=== PATIENT | male | born 1975 | race Two or more races ===

== ENCOUNTER 2021-03-28 13:02 | Emergency (ER) | payer MEDICAID ==
[~2021-03-28] VITALS: Ht 185.4 cm; Wt 86.2 kg
[~2021-03-28 13:02] MED LIST: ALBUAER3 IN; ASPI81CH43 PO; CAR3125T PO; FURO1TAB31 PO; LEVO500T31 PO; LISI2.5T47 PO
[2021-03-28] MEDS ORDERED: IOHEXOL 350 MG/ML 100ML IJ ONE ×2 (14:11→15:32)
[2021-03-28 14:39] LABS: Basophils # (auto) 0.1 10 ^3/uL (0-0.2); Basophils % (auto) 0.7 % (0.0-2.0); Eosinophils # (auto) 0 10 ^3/uL (0-0.8); Eosinophils % (auto) 0.3 % (0.0-7.0); Hematocrit 46.6 % (41.0-53.0); Hemoglobin 15.3 g/dL (13.5-17.5); Lymphocytes # (auto) 1.6 10 ^3/uL (0.4-5.4); Lymphocytes % (auto) 14.9 % (10.0-50.0); Mean Corpuscular Hemoglobin 30.7 pg (28.0-32.0); Mean Corpuscular Hgb Conc. 32.7 g/dL (32.0-36.0); Mean Corpuscular Volume 93.7 fL (80.0-100.0); Monocytes # (auto) 0.9 10 ^3/uL (0-1.3); Monocytes % (auto) 8.4 % (0.0-12.0); Neutrophils # (auto) 8.4 10 ^3/uL (1.6-8.6); Neutrophils % (auto) 75.7 % (37.0-80.0); Nucleated Red Blood Cells % 0.5 %; Red Blood Cells 4.98 10^6/uL (4.5-5.90); Red Cell Distribution Width 15.9 % (11.8-14.3)
[2021-03-28 14:58] LABS: Albumin 2.5 g/dL (3.4-5.0); Anion Gap 10 (5-15); Blood Urea Nitrogen 30 mg/dL (7-18); Calcium 7.7 mg/dL (8.5-10.1); Carbon Dioxide 23 mmol/L (21-32); Chloride 100 mmol/L (98-107); Glucose 154 mg/dL (74-106); Sodium 133 mmol/L (136-145)
[2021-03-28] MEDS ORDERED: ONDANSETRON HCL 4 MG/2 ML VIAL IV ONE (15:00)
[2021-03-28] MEDS ORDERED: MORPHINE SULFATE 4 MG/ML SYR/VIAL IV ONE ×2 (15:00→16:00)
[2021-03-28 15:02] LABS: Alanine Aminotransferase 642 U/L (16-61); Alkaline Phosphatase 136 U/L (45-117); Aspartate Aminotransferase 404 U/L (15-37); BUN/Creatinine Ratio 19.7; Bilirubin, Total 1.8 mg/dL (0.2-1.0); Blood Alcohol < 3.0 mg/dL (0-5); GFR African American 64 mL/min; GFR Non-African American 53 mL/min
[2021-03-28] MEDS ORDERED: HEPARIN SODIUM (PORCINE) 5000 UNITS/ML 1ML VIAL IV ONE ×2 (15:15→15:45)
[2021-03-28] MEDS ORDERED: HEPARIN DRIP/D5W 100UNITS/ML 250 ML IV SCH (15:30)
[2021-03-28 16:22] VITALS: BP 121/100
[2021-03-28 16:43] LABS: INR 1.61 (0.9-1.15); Partial Thromboplastin Time 28.9 sec (23.6-33.0)
[2021-03-30] MEDS ORDERED: CLOPIDOGREL BISULFATE 75 MG TAB PO SCH (10:00)
== END 2021-03-28 16:58 | disposition short-term general hospital (02) ==
LOC: ER 13:02
DX: I77.1 Stricture of artery (principal); I74.9 Embolism and thrombosis of unspecified artery; F17.210 Nicotine dependence, cigarettes, uncomplicated; I10 Essential (primary) hypertension; I25.2 Old myocardial infarction
CPT/HCPCS: 36415; 71275; 75635; 80053; 80320; 83605; 83880; 84484; 85025; 85610; 85730; 87040; 93005; 93925; 93970; 96374; 96375; 96376; 99285; J1644; J2270; J2405; Q9967